=== PATIENT | male | born 1955 | race Caucasian/White ===

== ENCOUNTER → 2017-11-03 | Outpatient (CLI) | payer MEDICAID ==
[~2017-11-03] MED LIST: IOPAMIDOL (ISOVUE 370) 100 ML BTL IV ONE
== END ==
LOC: FIMAGING 15:23
PROVIDERS: ATTEND Internal Medicine Cardiovascular Disease
DX: I26.99 Other pulmonary embolism without acute cor pulmonale (principal); R06.00 Dyspnea, unspecified
CPT/HCPCS: Q9967

== ENCOUNTER 2017-11-11 08:38 | Day surgery (SDC) | payer MEDICAID ==
[2017-11-11] MEDS ORDERED: diphenhydrAMINE 25 MG CAP PO ONE ×2 (08:44→09:18)
[2017-11-11] MEDS ORDERED: FAMOTIDINE 20 MG TAB PO ONE (08:44)
[2017-11-11] MEDS ORDERED: NS 1,000 ML IV ONE (08:44)
[2017-11-11] MEDS ORDERED: DIAZEPAM 5 MG TAB PO ONE (08:44)
[2017-11-11] MEDS ORDERED: ASPIRIN EC 325 MG TAB PO ONE ×2 (08:44→09:18)
--- NOTE | 2017-11-11 08:56 | PDHPUP ---
History & Physical Update H&P update statement: This history and physical update is based on an assessment of the patient which was completed after admission or registration (within 24 hours), but prior to the surgery/procedure. H&P update: H&P reviewed & patient examined, no change in patient's condition since H&P completed
--- NOTE | 2017-11-11 08:56 | PDPROPOC ---
Sedation Plan of Care Sedation Plan of Care: vital signs stable, mental status noted, patient educated of risks, benefits, alternatives, patient can tolerate sedation ASA Classification: ASA 3 Planned drugs: fentanyl, midazolam Mallampati Score: Class 3 Mallampati Reference Image: Patient passed 3-3-2 rule?: No
--- NOTE | 2017-11-11 09:06 | CPEKG ---
Heart Rate: 111 RR Interval: 541 P-R Interval: 155 QRSD Interval: 122 QT Interval: 336 QTC Interval: 457 P [place]: 0 QRS [place]: 85 T Wave [place]: -77 EKG Severity - ABNORMAL ECG - EKG Impression: SINUS TACHYCARDIA EKG Impression: RIGHT BUNDLE BRANCH BLOCK EKG Impression: ANTERIOR INFARCT, AGE INDETERMINATE Electronically Signed By: Jose De Jesus Pak 11-Nov-2017 18:03:01
[2017-11-11] MEDS ORDERED: FAMOTIDINE 20 MG TAB ONE (09:18)
[2017-11-11] MEDS ORDERED: DIAZEPAM 5 MG TAB ONE (09:19)
[2017-11-11 09:24] LABS: PLATELET COUNT 240 10^3/uL (150-400)
[2017-11-11 09:31] LABS: INR 1.28 (0.83-1.16); PROTIME(PATIENT) 16.2 SEC (12.0-15.0)
[2017-11-11] MEDS ORDERED: LIDOCAINE 1% 300 MG/30 ML SDV ONE (10:35)
[2017-11-11] MEDS ORDERED: fentaNYL 100 MCG/2 ML INJ ONE (10:35)
[2017-11-11] MEDS ORDERED: MIDAZOLAM 2 MG/2 ML VIAL ONE (10:36)
[2017-11-11] MEDS ORDERED: IOPAMIDOL (ISOVUE-370) 150 ML BTL IV ONE (10:36)
--- NOTE | 2017-11-11 11:31 | PDDXCAT ---
Diagnostic Cath Note - . Date: 11/11/17 Burial Agent: Omar (Pulmonary hypertension, dyspnea with early exertion) - Procedure Access: right groin Procedure: left heart catheterization, coronary angiography, right heart catheterization - Materials Left Heart Cath size: 5F Left Heart Cath materials: standard multipack (JL4, JR4, pigtail) Right Heart Cath size: 7F Right Heart Cath materials: PWP catheter - Findings-Left Heart Catheterization LM: 6mm in size. There is 40% proximal LAD stenosis prior to the stents. LAD: The LAD has been previously stented. The stents are bifurcating. The stents are widely patent with no evidence of significant instent restenosis. LCX: The circumlex is small, 2mm in size. The distal obtuse marginal is small and diffusely diseased. RCA: The RCA is dominant and gives rise to the PDA. There is right to left collaterals to distal left circumflex. It is a 6mm vessel. AL III flow. EDP: 18mmHg LVEF: The EF is estimated at 50%. Wall motion: The basal anterior wall is hypokinetic consistent with prior anterior TX. - Findings-Right Heart Catheterization RA: Pressure: 24/22, mean 19mmHg. The HRA saturation is 73.1%. RV: Pressure: 81/13, end diastolic pressure is 23mmHg. PA: Pressure: 82/36. Saturation: 65.7%. PAOP: 12mmHg AO: 97.1% CO: 4.63 L/min CI: 2.11 L/min/m2 Complications: None. 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 Flow limiting obstruction involves a branch of the left circumflex which is well collateralized from the right coronary. Severe pulmonary htn on bais of sleep apnea, chronic pulmonary embolus. The patient has very high right sided filling pressures. The patient has evidence of right heart failure. He also has evidence of a reduced cardiac index. Plan: the patient should be started on Revatio 20mg PO TID, to try to reduce pulmonary pressure and to improve left heart filling and cardiac output. If his peripheral edema does not improve with the addition of Revatio to his medical regimen, his diuretic regimen may need to be intensified and he may be a candidate for termite helper full dose anticoagulation to help reduce the risk of recurrent pulmonary emboli and further progression of right heart failure and pulmonary hypertension. Intervention: None.
[2017-11-11] MEDS ORDERED: NITROGLYCERIN 0.4 MG BTL SL PRN (12:02)
[2017-11-11] MEDS ORDERED: OXYCODONE/APAP 5/325 TAB PO PRN (12:02)
[2017-11-11] MEDS ORDERED: HYDROCODONE/APAP 5/325 TAB PO PRN (12:02)
[2017-11-11] MEDS ORDERED: ONDANSETRON 4 MG/2 ML VIAL IVP PRN (12:02)
[2017-11-11] MEDS ORDERED: ATROPINE SULFATE 1 MG/10 ML SYR IVP PRN (12:02)
== END 2017-11-11 15:58 | disposition home or self-care (01) ==
LOC: FCATH 08:38
PROVIDERS: ATTEND Internal Medicine Cardiovascular Disease
PROC: 4A023N8 Measurement of Cardiac Sampling and Pressure, Bilateral, Percutaneous Approach (ICD-10-PCS; principal; 2017-11-11)
PROC: B2111ZZ Fluoroscopy of Multiple Coronary Arteries using Low Osmolar Contrast (ICD-10-PCS; principal; 2017-11-11)
PROC: B2151ZZ Fluoroscopy of Left Heart using Low Osmolar Contrast (ICD-10-PCS; principal; 2017-11-11)
DX: I27.20 Pulmonary hypertension, unspecified (principal); I26.99 Other pulmonary embolism without acute cor pulmonale; I25.10 Atherosclerotic heart disease of native coronary artery without angina pectoris; G47.33 Obstructive sleep apnea (adult) (pediatric); Z95.5 Presence of coronary angioplasty implant and graft; E78.5 Hyperlipidemia, unspecified; I12.9 Hypertensive chronic kidney disease with stage 1 through stage 4 chronic kidney disease, or unspecified chronic kidney disease; N18.3 Chronic kidney disease, stage 3 (moderate)
CPT/HCPCS: C1760; J1200; J1644; J2250; J3010; Q9967

== ENCOUNTER → 2018-01-27 | Outpatient (CLI) | payer MEDICAID | LOC: FIMAGING 12:46 | PROVIDERS: ATTEND Internal Medicine Pulmonary Disease | DX: I51.7 Cardiomegaly (principal); I26.99 Other pulmonary embolism without acute cor pulmonale | CPT/HCPCS: 71046; 78582; A9540; A9558 ==